=== PATIENT | female | born 2000 | race Two or more races ===

== ENCOUNTER 2021-10-24 11:00 | Outpatient (REF) | payer OTHER, SELFPAY ==
[2021-10-24 12:26] LABS: COVID-19 Test Positive (Negative); IDNOW Serial# 55D5AD1C
== END 2021-10-24 11:01 | disposition home or self-care (01) ==
LOC: HO.LAB 11:00
PROVIDERS: Visit Provider Internal Medicine
DX: Z20.822 Contact with and (suspected) exposure to COVID-19 (principal)
CPT/HCPCS: 36415; 87635; C9803